=== PATIENT | male | born 1990 | race Caucasian/White ===

== ENCOUNTER 2017-08-04 08:20 | Emergency (ER) | payer SELFPAY ==
[2017-08-04] MEDS ORDERED: MOTRIN PO ONE (10:03)
--- NOTE | 2017-08-04 10:05 | Emergency Department Report ---
ED Lower Extremity HPI - General Chief Complaint: Extremity Injury, Lower Stated Complaint: GOUT Time Seen by Provider: 08/04/17 08:44 Source: patient Mode of arrival: Ambulatory Limitations: No Limitations - History of Present Illness Initial Comments: This is a 27-year-old male nontoxic, well nourished in appearance, no acute signs of distress presents to the ED complaining of right ankle pain and swelling x2 days. Patient stated he has chronic intermittent gout to the same extremity that occurs yearly for the past 4 years. Patient denies any new trauma to the region. Denies any joint redness or warmth to touch. Denies any numbness, tingling, fever, chills, nausea, vomiting, chest pain, shortness of breath, stiff neck or headache. Denies any allergies or past history besides gout. MD Complaint: ankle injury -: Gradual, days(s) (2) Injury: Ankle: Right Severity scale (0 -10): 8 Improves With: nothing Worsens With: nothing Associated Symptoms: swelling, able to partially bear weight, ambulatory. denies: snap/pop sensation, numbness, tingling, unable to bear weight - Related Data Previous Rx's Medication Instructions Recorded Last Taken Type Ciprofloxacin HCl [Ciprofloxacin 500 mg PO Q12H #20 tab 10/19/15 Unknown Rx TAB] HYDROcodone/APAP 5-325 [[place] 1 each PO Q6HR PRN #20 tablet 10/19/15 Unknown Rx 5/325] Prednisone [predniSONE 10 mg 10 mg PO .TAPER #1 tab.ds.pk 10/19/15 Unknown Rx (6-Day Pack, 21 Tabs)] Ibuprofen [Motrin 600 MG tab] 600 mg PO Q8H PRN #30 tablet 08/04/17 Unknown Rx predniSONE [Deltasone] 40 mg PO QDAY #5 tab 08/04/17 Unknown Rx Allergies Allergy/AdvReac Type Severity Reaction Status Date / Time No Known Allergies Allergy Verified 10/19/15 09:51 ED Review of Systems ROS: Stated complaint: GOUT Other details as noted in HPI Constitutional: denies: chills, fever Eyes: denies: eye pain, eye discharge, vision change ENT: denies: ear pain, throat pain Respiratory: denies: cough, shortness of breath, wheezing Cardiovascular: denies: chest pain, palpitations Endocrine: no symptoms reported Gastrointestinal: denies: abdominal pain, nausea, diarrhea Genitourinary: denies: urgency, dysuria Musculoskeletal: denies: back pain, joint swelling, arthralgia Skin: denies: rash, lesions Neurological: denies: headache, weakness, paresthesias Psychiatric: denies: anxiety, depression Hematological/Lymphatic: denies: easy bleeding, easy bruising ED Past Medical Hx - Past Medical History Additional medical history: gout - Surgical History Past Surgical History?: No - Social History Smoking Status: Never Smoker Substance Use Type: None - Medications Home Medications: Home Medications Medication Instructions Recorded Confirmed Last Taken Type Ciprofloxacin HCl [Ciprofloxacin 500 mg PO Q12H #20 tab 10/19/15 Unknown Rx TAB] HYDROcodone/APAP 5-325 [[place] 1 each PO Q6HR PRN #20 tablet 10/19/15 Unknown Rx 5/325] Prednisone [predniSONE 10 mg 10 mg PO .TAPER #1 tab.ds.pk 10/19/15 Unknown Rx (6-Day Pack, 21 Tabs)] Ibuprofen [Motrin 600 MG tab] 600 mg PO Q8H PRN #30 tablet 08/04/17 Unknown Rx predniSONE [Deltasone] 40 mg PO QDAY #5 tab 08/04/17 Unknown Rx ED Physical Exam - General Limitations: No Limitations General appearance: alert, in no apparent distress - Head Head exam: Present: atraumatic, normocephalic, normal inspection - Eye Eye exam: Present: normal appearance, PERRL, EOMI. Absent: scleral icterus, conjunctival injection, nystagmus, periorbital swelling, periorbital tenderness Pupils: Present: normal accommodation - ENT ENT exam: Present: normal exam, normal orophraynx, mucous membranes moist, TM's normal bilaterally, normal external ear exam - Neck Neck exam: Present: normal inspection, full ROM. Absent: tenderness, meningismus, lymphadenopathy, thyromegaly - Respiratory Respiratory exam: Present: normal lung sounds bilaterally. Absent: respiratory distress, wheezes, rales, rhonchi, stridor, chest wall tenderness, accessory muscle use, decreased breath sounds, prolonged expiratory - Cardiovascular Cardiovascular Exam: Present: regular rate, normal rhythm, normal heart sounds. Absent: bradycardia, tachycardia, irregular rhythm, systolic murmur, diastolic murmur, rubs, gallop - GI/Abdominal GI/Abdominal exam: Present: soft, normal bowel sounds. Absent: distended, tenderness, guarding, rebound, rigid, diminished bowel sounds - Rectal Rectal exam: Present: deferred - Extremities Exam Extremities exam: Present: normal inspection, full ROM, tenderness, normal capillary refill. Absent: pedal edema, joint swelling, calf tenderness - Expanded Lower Extremity Exam Right Hip exam: Present: normal inspection, full ROM Upper Leg exam: Present: normal inspection, full ROM Knee exam: Present: normal inspection, full ROM Lower Leg exam: Present: normal inspection, full ROM. Absent: Tricia's sign Ankle exam: Present: normal inspection, full ROM, tenderness, swelling. Absent : abrasion, laceration, ecchymosis, deformity, crepidus, dislocation, erythema, anterior draw sign Foot/Toe exam: Present: normal inspection, full ROM Neuro vascular tendon exam: Present: no vascular compromise. Absent: pulse deficit, abnormal cap refill, motor deficit, sensory deficit, tendon deficit, extremity cold to touch, pallor, abnormal 2-point discrimination, decreased fine /light touch, foot drop, peroneal nerve deficit, significant pain with passive ROM of distal joint Gait: Positive: observed and limited by pain 1 - Swelling and tenderness - Back Exam Back exam: Present: normal inspection, full ROM. Absent: tenderness, CVA tenderness (R), CVA tenderness (L), muscle spasm, paraspinal tenderness, vertebral tenderness, rash noted - Neurological Exam Neurological exam: Present: alert, oriented X3, CN II-XII intact, normal gait, reflexes normal - Psychiatric Psychiatric exam: Present: normal affect, normal mood - Skin Skin exam: Present: warm, dry, intact, normal color. Absent: rash ED Course Vital Signs 08/04/17 08:25 Temperature 98.2 F Pulse Rate 85 Respiratory 17 Rate Blood Pressure 170/108 O2 Sat by Pulse 99 Oximetry - Reevaluation(s) Reevaluation #1: 08/04/17 10:03 Patient is speaking in full sentences with no signs of distress noted. ED Lower Extremity MDM - Medical Decision Making 27-year-old male that presents with gout attack. Patient was examined by me and patient is stable. Patient received Solu-Medrol on 25 mg IM in the ED as well as ibuprofen 800 milligrams by mouth in the ED patient was educated on gout and has to avoid gout such as red meats. Patient received prednisone by mouth and ibuprofen at discharge. Patient was instructed to follow-up with a primary care doctor in 3-5 days or if symptoms worsen and continue return to emergency room as soon as possible possible. Patient is hemodynamically stable with stable vital signs. Patient states he is feeling better. At time time of discharge, the patient does not seem toxic or ill in appearance. No acute signs of distress noted. Patient agrees to discharge treatment plan of care. No further questions noted by the patient. Critical care attestation.: If time is entered above; I have spent that time in minutes in the direct care of this critically ill patient, excluding procedure time. 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 Prescriptions: Ibuprofen [Motrin 600 MG tab] 600 mg PO Q8H PRN #30 tablet PRN Reason: Pain predniSONE [Deltasone] 40 mg PO QDAY #5 tab Referrals: KRISTIN ARRINGTON MD [Primary Care Provider] - 3-5 Days ANGELINE HILLIARD MD [Staff Physician] - 3-5 Days [facility] [Outside] - 3-5 Days [facility] [Outside] - 3-5 Days Forms: Work/School Release Form(ED)
[2017-08-04 10:07] VITALS: BP 154/91
== END 2017-08-04 10:17 | disposition home or self-care (01) ==
LOC: ED 08:20
DX: M1A.0710 Idiopathic chronic gout, right ankle and foot, without tophus (tophi) (principal)
CPT/HCPCS: 96372; 99282; J2930

== ENCOUNTER 2018-03-23 06:23 | Emergency (ER) | payer SELFPAY ==
[2018-03-23] MEDS ORDERED: ASPIRIN PO ONE (06:57)
[2018-03-23 06:58] VITALS: BP 151/103
[2018-03-23 07:43] LABS: Basophils # (Auto) 0.1 K/mm3 (0.0-0.1); Basophils % (Auto) 0.4 % (0.0-1.8); Eosinophils # (Auto) 0.6 K/mm3 (0.0-0.4); Eosinophils % (Auto) 4.1 % (0.0-4.3); Hematocrit 47.4 % (35.5-45.6); Hemoglobin 16.4 gm/dl (11.8-15.2); Lymphocytes # (Auto) 3.1 K/mm3 (1.2-5.4); Lymphocytes % (Auto) 21.6 % (13.4-35.0); Mean Corpuscular HGB Conc 35 % (32-34); Mean Corpuscular Hemoglobin 31 pg (28-32); Mean Corpuscular Volume 91 fl (84-94); Monocytes # (Auto) 0.7 K/mm3 (0.0-0.8); Monocytes % (Auto) 5.1 % (0.0-7.3); Platelet Count 277 K/mm3 (140-440); Red Blood Count 5.23 M/mm3 (3.65-5.03)
[2018-03-23 08:00] LABS: BUN/Creatinine Ratio 11; Blood Urea Nitrogen 10 mg/dL (9-20); Calcium 8.8 mg/dL (8.4-10.2); Hemolysis Index 18
--- NOTE | 2018-03-23 08:04 | Emergency Department Report ---
ED Chest Pain HPI - General Chief Complaint: Chest Pain Stated Complaint: CHEST PAIN Time Seen by Provider: 03/23/18 07:53 Source: patient Mode of arrival: Ambulatory Limitations: No Limitations - History of Present Illness Initial Comments: 27-year-old male presents to the emergency department with complaint of waking up this morning with some generalized chest tightness and/or discomfort. He denies any shortness of breath, nausea, vomiting, back pain, diaphoresis, abdominal pain. He did not take anything for his symptoms prior to presentation. The symptoms have resolved since, without any intervention. He used to be a consistent marijuana smoker but quit back and says that he started smoking cigarettes about one month ago. No family history of early cardiac events or disease. No recent travel, recent surgery, recent immobility, or any sick contacts at home. - Related Data Previous Rx's Medication Instructions Recorded Last Taken Type Ciprofloxacin HCl [Ciprofloxacin 500 mg PO Q12H #20 tab 10/19/15 Unknown Rx TAB] HYDROcodone/APAP 5-325 [[place] 1 each PO Q6HR PRN #20 tablet 10/19/15 Unknown Rx 5/325] Prednisone [predniSONE 10 mg 10 mg PO .TAPER #1 tab.ds.pk 10/19/15 Unknown Rx (6-Day Pack, 21 Tabs)] Ibuprofen [Motrin 600 MG tab] 600 mg PO Q8H PRN #30 tablet 08/04/17 Unknown Rx predniSONE [Deltasone] 40 mg PO QDAY #5 tab 08/04/17 Unknown Rx Allergies Allergy/AdvReac Type Severity Reaction Status Date / Time No Known Allergies Allergy Verified 10/19/15 09:51 Heart Score - HEART Score History: Slightly suspicious EKG: Normal Age: < 45 Risk factors: 1-2 risk factors Troponin: < normal limit HEART Score: 1 - Critical Actions Critical Actions: 0-3 pts:0.9-1.7%risk of adverse cardiac event.Candidate for discharge ED Review of Systems ROS: Stated complaint: CHEST PAIN Other details as noted in HPI Comment: All other systems reviewed and negative Constitutional: denies: chills, fever Eyes: denies: eye pain, eye discharge, vision change ENT: denies: ear pain, throat pain Respiratory: denies: cough, shortness of breath, wheezing Cardiovascular: chest pain. denies: palpitations Gastrointestinal: denies: abdominal pain, nausea, diarrhea Genitourinary: denies: urgency, dysuria Musculoskeletal: denies: back pain, joint swelling, arthralgia Skin: denies: rash, lesions Neurological: denies: headache, weakness, paresthesias ED Past Medical Hx - Past Medical History Previous Medical History?: Yes Hx Arthritis: Yes (gout) Additional medical history: gout - Surgical History Past Surgical History?: No - Social History Smoking Status: Former Smoker Substance Use Type: None - Medications Home Medications: Home Medications Medication Instructions Recorded Confirmed Last Taken Type Ciprofloxacin HCl [Ciprofloxacin 500 mg PO Q12H #20 tab 10/19/15 Unknown Rx TAB] HYDROcodone/APAP 5-325 [[place] 1 each PO Q6HR PRN #20 tablet 10/19/15 Unknown Rx 5/325] Prednisone [predniSONE 10 mg 10 mg PO .TAPER #1 tab.ds.pk 10/19/15 Unknown Rx (6-Day Pack, 21 Tabs)] Ibuprofen [Motrin 600 MG tab] 600 mg PO Q8H PRN #30 tablet 08/04/17 Unknown Rx predniSONE [Deltasone] 40 mg PO QDAY #5 tab 08/04/17 Unknown Rx ED Physical Exam - General Limitations: No Limitations - Other Other exam information: GENERAL: The patient is well-developed well-nourished. HENT: Normocephalic. Atraumatic. Patient has moist mucous membranes. EYES: Extraocular motions are intact. Pupils equal reactive to light bilaterally. NECK: Supple. Trachea is midline. CHEST/LUNGS: Clear to auscultation. There is no respiratory distress noted. HEART/CARDIOVASCULAR: Regular. There is no tachycardia. There is no murmur. ABDOMEN: Abdomen is soft, nontender. Patient has normal bowel sounds. There is no abdominal distention. SKIN: Skin is warm and dry. NEURO: The patient is awake, alert, and oriented. The patient is cooperative. The patient has no focal neurologic deficits. The patient has normal speech. MUSCULOSKELETAL: There is no tenderness or deformity. There is no limitation range of motion. There is no evidence of acute injury. ED Course Vital Signs 03/23/18 06:53 Temperature 98.5 F Pulse Rate 79 Respiratory 18 Rate Blood Pressure 151/103 O2 Sat by Pulse 96 Oximetry KRISTIN score - Kristin Score Age > 65: (0) No Aspirin use within the Past 7 Days: (0) No 3 or more CAD Risk Factors: (0) No 2 or more Angina events in past 24 hrs: (0) No Known CAD with more than 50% Stenosis: (0) No Elevated Cardiac Markers: (0) No ST Deviation Greater than 0.5mm: (0) No KRISTIN Score: 0 ED Medical Decision Making - Lab Data Result diagrams: 03/23/18 07:11 03/23/18 07:09 - EKG Data -: EKG Interpreted by Me EKG shows normal: sinus rhythm, axis, intervals, QRS complexes, ST-T waves ( early repolarization) Rate: normal - EKG Data When compared to previous EKG there are: previous EKG unavailable Interpretation: normal EKG - Radiology Data Radiology results: image reviewed interpreted by me: Chest x-ray does not show any acute process. There are no pleural effusions, obvious pneumonia and there is no pneumothorax. - Medical Decision Making Patient woke up this morning with some generalized chest tightness and/or discomfort. It seems to have resolved by the time I am seeing him in the emergency department. EKG does not show any signs of ST elevation MN, ischemia or dysrhythmia. Chest x-ray does not show any acute process. Labs were unremarkable including negative troponins 2 and a negative d-dimer. He is low on the Frye score criteria and has a KRISTIN score of 0. He was reevaluated multiple times over multiple hours and the chest pain did not return. We discussed smoking cessation. He will follow up with a primary care physician and will return to the ER with any return of his chest pain, worsening of his symptoms or any acute distress. - Differential Diagnosis MN, costochondritis, PE, pneumonia Critical Care Time: No Critical care attestation.: If time is entered above; I have spent that time in minutes in the direct care of this critically ill patient, excluding procedure time. ED Disposition Clinical Impression: Tobacco use disorder, Elevated blood pressure reading Chest pain Qualifiers: Chest pain type: unspecified Qualified Code(s): R07.9 - Chest pain, unspecified Disposition: DC-01 TO HOME OR SELFCARE Is pt being admited?: No Condition: Stable Instructions: Chest Pain (ED), How to Stop Smoking (ED) Additional Instructions: Please follow up with a primary care physician in the next few days. Return to the emergency department with any recurrence of your chest pain, or with any acute distress. Please quit smoking. Try and stay away from foods are high in salt and caffeinated products to help with her blood pressure. Keep a blood pressure log. Referrals: PRIMARY CARE, [Primary Care Provider] - 3-5 Days DIPAK YEAGER MD [Staff Physician] - 3-5 Days [facility] [Outside] - 3-5 Days Forms: Work/School Release Form(ED) Time of Disposition: 09:52
--- NOTE | 2018-03-23 09:46 | XRay Report ---
ROUTINE CHEST, TWO VIEWS: HISTORY: chest pain. The trachea, heart, mediastinal contour, lung marquez and bony thorax are unremarkable. IMPRESSION: Unremarkable chest x-ray. No significant change since 10/19/15.
== END 2018-03-23 09:59 | disposition home or self-care (01) ==
LOC: ED 06:23
DX: R07.89 Other chest pain (principal); I10 Essential (primary) hypertension; Z72.0 Tobacco use; M10.9 Gout, unspecified
CPT/HCPCS: 36415; 71046; 80048; 84484; 85025; 93005; 93010

== ENCOUNTER 2018-06-15 12:33 | Emergency (ER) | payer SELFPAY ==
[2018-06-15] MEDS ORDERED: MOTRIN PO ONE (14:50)
[2018-06-15] MEDS ORDERED: BOOSTRIX IM ONE (14:50)
--- NOTE | 2018-06-15 14:54 | Emergency Department Report ---
- General Chief complaint: Skin/Abscess/Foreign Body Stated complaint: SPIDER BITE ON (L) BUTTOCKS Time Seen by Provider: 06/15/18 14:05 Source: patient Mode of arrival: Ambulatory Limitations: No Limitations - History of Present Illness Initial comments: This is a 28-year-old male nontoxic, well nourished in appearance, no acute signs of distress presents to the ED with c/o of redness with pain in left buttock area. Patient stated he is not sure how he developed this. Patient denies any pus or drainage. Patient denies any nausea, vomiting chest pain, shortness of breathe, fever, chills, headache, stiff neck, back pain. Patient denies any allergies or PMH. MD complaint: insect bite/sting -: days(s) (2) Tetanus Up to Date: no Location: buttocks Severity: mild Severity scale (0 -10): 8 Quality: aching Consistency: constant Improves with: none Worsens with: none Associated symptoms: denies other symptoms Treatments Prior to Arrival: none - Related Data Previous Rx's Medication Instructions Recorded Last Taken Type Ciprofloxacin HCl [Ciprofloxacin 500 mg PO Q12H #20 tab 10/19/15 Unknown Rx TAB] HYDROcodone/APAP 5-325 [[place] 1 each PO Q6HR PRN #20 tablet 10/19/15 Unknown Rx 5/325] Prednisone [predniSONE 10 mg 10 mg PO .TAPER #1 tab.ds.pk 10/19/15 Unknown Rx (6-Day Pack, 21 Tabs)] Ibuprofen [Motrin 600 MG tab] 600 mg PO Q8H PRN #30 tablet 08/04/17 Unknown Rx predniSONE [Deltasone] 40 mg PO QDAY #5 tab 08/04/17 Unknown Rx Acetaminophen/Codeine [Tylenol 1 tab PO Q6H PRN #12 tab 06/15/18 Unknown Rx /Codeine # 3 tab] Clindamycin [Clindamycin CAP] 300 mg PO Q8H #21 cap 06/15/18 Unknown Rx Ibuprofen [Motrin] 600 mg PO Q8H PRN #30 tablet 06/15/18 Unknown Rx Allergies Allergy/AdvReac Type Severity Reaction Status Date / Time No Known Allergies Allergy Verified 10/19/15 09:51 Abscess Boil HPI - HPI Chief Complaint: Skin/Abscess/Foreign Body Stated Complaint: SPIDER BITE ON (L) BUTTOCKS Time Seen by Provider: 06/15/18 14:05 Home Medications: Previous Rx's Medication Instructions Recorded Last Taken Type Ciprofloxacin HCl [Ciprofloxacin 500 mg PO Q12H #20 tab 10/19/15 Unknown Rx TAB] HYDROcodone/APAP 5-325 [[place] 1 each PO Q6HR PRN #20 tablet 10/19/15 Unknown Rx 5/325] Prednisone [predniSONE 10 mg 10 mg PO .TAPER #1 tab.ds.pk 10/19/15 Unknown Rx (6-Day Pack, 21 Tabs)] Ibuprofen [Motrin 600 MG tab] 600 mg PO Q8H PRN #30 tablet 08/04/17 Unknown Rx predniSONE [Deltasone] 40 mg PO QDAY #5 tab 08/04/17 Unknown Rx Acetaminophen/Codeine [Tylenol 1 tab PO Q6H PRN #12 tab 06/15/18 Unknown Rx /Codeine # 3 tab] Clindamycin [Clindamycin CAP] 300 mg PO Q8H #21 cap 06/15/18 Unknown Rx Ibuprofen [Motrin] 600 mg PO Q8H PRN #30 tablet 06/15/18 Unknown Rx Allergies/Adverse Reactions: Allergies Allergy/AdvReac Type Severity Reaction Status Date / Time No Known Allergies Allergy Verified 10/19/15 09:51 ED Review of Systems ROS: Stated complaint: SPIDER BITE ON (L) BUTTOCKS Other details as noted in HPI Constitutional: denies: chills, fever Eyes: denies: eye pain, eye discharge, vision change ENT: denies: ear pain, throat pain Respiratory: denies: cough, shortness of breath, wheezing Cardiovascular: denies: chest pain, palpitations Endocrine: no symptoms reported Gastrointestinal: denies: abdominal pain, nausea, diarrhea Genitourinary: denies: urgency, dysuria Musculoskeletal: denies: back pain, joint swelling, arthralgia Skin: denies: rash, lesions Neurological: denies: headache, weakness, paresthesias Psychiatric: denies: anxiety, depression Hematological/Lymphatic: denies: easy bleeding, easy bruising ED Past Medical Hx - Past Medical History Previous Medical History?: Yes Hx Arthritis: Yes (gout) Additional medical history: gout - Surgical History Past Surgical History?: No - Social History Smoking Status: Never Smoker Substance Use Type: None - Medications Home Medications: Home Medications Medication Instructions Recorded Confirmed Last Taken Type Ciprofloxacin HCl [Ciprofloxacin 500 mg PO Q12H #20 tab 10/19/15 Unknown Rx TAB] HYDROcodone/APAP 5-325 [[place] 1 each PO Q6HR PRN #20 tablet 10/19/15 Unknown Rx 5/325] Prednisone [predniSONE 10 mg 10 mg PO .TAPER #1 tab.ds.pk 10/19/15 Unknown Rx (6-Day Pack, 21 Tabs)] Ibuprofen [Motrin 600 MG tab] 600 mg PO Q8H PRN #30 tablet 08/04/17 Unknown Rx predniSONE [Deltasone] 40 mg PO QDAY #5 tab 08/04/17 Unknown Rx Acetaminophen/Codeine [Tylenol 1 tab PO Q6H PRN #12 tab 06/15/18 Unknown Rx /Codeine # 3 tab] Clindamycin [Clindamycin CAP] 300 mg PO Q8H #21 cap 06/15/18 Unknown Rx Ibuprofen [Motrin] 600 mg PO Q8H PRN #30 tablet 06/15/18 Unknown Rx ED Physical Exam - General Limitations: No Limitations General appearance: alert, in no apparent distress - Head Head exam: Present: atraumatic, normocephalic - Eye Eye exam: Present: normal appearance - ENT ENT exam: Present: mucous membranes moist - Neck Neck exam: Present: normal inspection - Respiratory Respiratory exam: Present: normal lung sounds bilaterally. Absent: respiratory distress - Cardiovascular Cardiovascular Exam: Present: regular rate, normal rhythm. Absent: systolic murmur, diastolic murmur, rubs, gallop - GI/Abdominal GI/Abdominal exam: Present: soft, normal bowel sounds - Rectal Rectal exam: Present: deferred - Extremities Exam Extremities exam: Present: normal inspection, full ROM, normal capillary refill - Back Exam Back exam: Present: normal inspection, full ROM - Neurological Exam Neurological exam: Present: alert, oriented X3, normal gait - Psychiatric Psychiatric exam: Present: normal affect, normal mood - Skin Skin exam: Present: warm, dry, intact, normal color. Absent: rash - Other Other exam information: 2 cm x 2 cm circular redness with no induration or flutance to left buttock area. Tender to touch. Slight warm to touch. No pus or drainage. ED Course Vital Signs 06/15/18 12:55 Temperature 99.0 F Pulse Rate 95 H Respiratory 18 Rate Blood Pressure 153/85 O2 Sat by Pulse 97 Oximetry - Reevaluation(s) Reevaluation #1: 06/15/18 14:55 Patient is speaking in full sentences with no signs of distress noted. ED Medical Decision Making - Medical Decision Making This is a 28-year-old male that presents with cellulitis. Patient is stable and was examined by me. Upon examination there is no abscess formation. Patient received tetanus booster in the ER. I use a permanent marker to outline the cellulitis and patient was instructed to return to the ER if increased swelling or redness at this may be an abscess formation that needs to be further evaluated and treated. I will discharge patient with clindamycin. Patient was referred to Follow-up with a primary care doctor in 3-5 days or if symptoms worsen and continue return to emergency room as soon as possible. At time of discharge, the patient does not seem toxic or ill in appearance. No acute signs of distress noted. Patient agrees to discharge treatment plan of care. No further questions noted by the patient. Critical care attestation.: If time is entered above; I have spent that time in minutes in the direct care of this critically ill patient, excluding procedure time. ED Disposition Clinical Impression: Cellulitis Qualifiers: Site of cellulitis: buttock Qualified Code(s): L03.317 - Cellulitis of buttock Disposition: DC-01 TO HOME OR SELFCARE Is pt being admited?: No Does the pt Need Aspirin: No Condition: Stable Instructions: Cellulitis (ED) Additional Instructions: Follow-up with a primary care doctor in 3-5 days or if symptoms worsen and continue return to emergency room as soon as possible. Do not operate any machinery while taking Tylenol with codeine as this may cause drowsiness. Prescriptions: Acetaminophen/Codeine [Tylenol /Codeine # 3 tab] 1 tab PO Q6H PRN #12 tab PRN Reason: Pain , Severe (7-10) Clindamycin [Clindamycin CAP] 300 mg PO Q8H #21 cap Ibuprofen [Motrin] 600 mg PO Q8H PRN #30 tablet PRN Reason: Pain Referrals: PRIMARY CAREMD [Primary Care Provider] - 3-5 Days ELVA TERAN MD [Staff Physician] - 3-[address] [facility] [Outside] - 3-5 Days [facility] [Outside] - 3-5 Days Forms: Work/School Release Form(ED)
[2018-06-15 15:09] VITALS: BP 150/80
== END 2018-06-15 15:08 | disposition home or self-care (01) ==
LOC: ED 12:33
DX: L03.317 Cellulitis of buttock (principal); M19.90 Unspecified osteoarthritis, unspecified site; M10.9 Gout, unspecified; Z79.899 Other long term (current) drug therapy
CPT/HCPCS: 90471; 90715; 99282

== ENCOUNTER 2019-04-01 17:19 | Emergency (ER) | payer SELFPAY ==
--- NOTE | 2019-04-01 17:46 | Emergency Department Report ---
Blank Doc - Documentation Documentation: This is a 28-year-old male that presents with right foot swelling. Patient de nies any injuries. Stated has HX of gout. This initial assessment/diagnostic orders/clinical plan/treatment(s) is/are subject to change based on patient's health status, clinical progression and re- assessment by fellow clinical providers in the ED. Further treatment and workup at subsequent clinical providers discretion. Patient/guardians urged not to elope from the ED as their condition may be serious if not clinically assessed and managed. Initial orders include: 1- Patient sent to [facility] for further evaluation and treatment
[2019-04-01 17:47] VITALS: BP 176/11
[2019-04-01] MEDS ORDERED: SOLU-Medrol IM ONE (20:10)
[2019-04-01] MEDS ORDERED: TORADOL IM ONE (20:10)
[2019-04-01] MEDS ORDERED: PERCOCET 5/325 PO ONE (20:10)
[2019-04-01] MEDS ORDERED: COLCHICINE PO ONE (20:11)
[2019-04-01] MEDS ORDERED: ZOFRAN ODT PO ONE (20:11)
--- NOTE | 2019-04-01 21:18 | Emergency Department Report ---
ED General Adult HPI - General Chief complaint: Extremity Injury, Lower Stated complaint: R FOOT PAIN Time Seen by Provider: 04/01/19 17:45 Source: patient Mode of arrival: Wheelchair Limitations: No Limitations - History of Present Illness Initial comments: Patient is a 28-year-old male with a history of chronic gouty arthropathy who presents to the ED with complaint of acute exacerbation of his gouty arthropathy characterized by severe right ankle pain, erythema and swelling for the last 5 days. Patient admits to eating a lot of red meat at home. Patient denies traumatic injury, fall, numbness and tingling of the right ankle or right foot, his lifting, nausea, vomiting, fever, chills, dizziness or back pain. MD Complaint: right ankle joint pain; Gouty arthropathy flare -: Sudden, days(s) (5) Location: lower extremity (right ankle) Radiation: non-radiation Severity scale (0 -10): 6 Quality: burning, aching, sharp, constant Consistency: constant Improves with: none Worsens with: none Associated Symptoms: denies: confusion, chest pain, cough, diaphoresis, fever/chills, loss of appetite, malaise, nausea/vomiting, seizure, shortness of breath, syncope, weakness Treatments Prior to Arrival: NSAID - Related Data Previous Rx's Medication Instructions Recorded Last Taken Type Ciprofloxacin HCl [Ciprofloxacin 500 mg PO Q12H #20 tab 10/19/15 Unknown Rx TAB] HYDROcodone/APAP 5-325 [[place] 1 each PO Q6HR PRN #20 tablet 10/19/15 Unknown Rx 5/325] Prednisone [predniSONE 10 mg 10 mg PO .TAPER #1 tab.ds.pk 10/19/15 Unknown Rx (6-Day Pack, 21 Tabs)] Ibuprofen [Motrin 600 MG tab] 600 mg PO Q8H PRN #30 tablet 08/04/17 Unknown Rx predniSONE [Deltasone] 40 mg PO QDAY #5 tab 08/04/17 Unknown Rx Acetaminophen/Codeine [Tylenol 1 tab PO Q6H PRN #12 tab 06/15/18 Unknown Rx /Codeine # 3 tab] Clindamycin [Clindamycin CAP] 300 mg PO Q8H #21 cap 06/15/18 Unknown Rx Ibuprofen [Motrin] 600 mg PO Q8H PRN #30 tablet 06/15/18 Unknown Rx Colchicine 0.6 mg PO Q8H PRN #30 capsule 04/01/19 Unknown Rx Indomethacin 50 mg PO Q8H PRN #45 capsule 04/01/19 Unknown Rx predniSONE [Deltasone] 60 mg PO QDAY #15 tab 04/01/19 Unknown Rx traMADol [Ultram] 50 mg PO Q6HR PRN #12 tablet 04/01/19 Unknown Rx Allergies Allergy/AdvReac Type Severity Reaction Status Date / Time No Known Allergies Allergy Verified 04/01/19 17:24 ED Review of Systems ROS: Stated complaint: R FOOT PAIN Other details as noted in HPI Constitutional: denies: chills, fever Eyes: denies: eye pain, eye discharge, vision change ENT: denies: ear pain, throat pain Respiratory: denies: cough, shortness of breath, wheezing Cardiovascular: denies: chest pain, palpitations Endocrine: no symptoms reported Gastrointestinal: denies: abdominal pain, nausea, diarrhea Genitourinary: denies: urgency, dysuria Musculoskeletal: joint swelling (right ankle), arthralgia (right ankle), myalgia. denies: back pain Skin: denies: rash, lesions Neurological: denies: headache, weakness, paresthesias Psychiatric: denies: anxiety, depression Hematological/Lymphatic: denies: easy bleeding, easy bruising ED Past Medical Hx - Past Medical History Previous Medical History?: Yes Hx Arthritis: Yes (gout) Additional medical history: gout - Surgical History Past Surgical History?: No - Social History Smoking Status: Never Smoker Substance Use Type: None - Medications Home Medications: Home Medications Medication Instructions Recorded Confirmed Last Taken Type Ciprofloxacin HCl [Ciprofloxacin 500 mg PO Q12H #20 tab 10/19/15 Unknown Rx TAB] HYDROcodone/APAP 5-325 [[place] 1 each PO Q6HR PRN #20 tablet 10/19/15 Unknown Rx 5/325] Prednisone [predniSONE 10 mg 10 mg PO .TAPER #1 tab.ds.pk 10/19/15 Unknown Rx (6-Day Pack, 21 Tabs)] Ibuprofen [Motrin 600 MG tab] 600 mg PO Q8H PRN #30 tablet 08/04/17 Unknown Rx predniSONE [Deltasone] 40 mg PO QDAY #5 tab 08/04/17 Unknown Rx Acetaminophen/Codeine [Tylenol 1 tab PO Q6H PRN #12 tab 06/15/18 Unknown Rx /Codeine # 3 tab] Clindamycin [Clindamycin CAP] 300 mg PO Q8H #21 cap 06/15/18 Unknown Rx Ibuprofen [Motrin] 600 mg PO Q8H PRN #30 tablet 06/15/18 Unknown Rx Colchicine 0.6 mg PO Q8H PRN #30 capsule 04/01/19 Unknown Rx Indomethacin 50 mg PO Q8H PRN #45 capsule 04/01/19 Unknown Rx predniSONE [Deltasone] 60 mg PO QDAY #15 tab 04/01/19 Unknown Rx traMADol [Ultram] 50 mg PO Q6HR PRN #12 tablet 04/01/19 Unknown Rx ED Physical Exam - General Limitations: No Limitations General appearance: alert, in no apparent distress - Head Head exam: Present: atraumatic, normocephalic, normal inspection - Eye Eye exam: Present: normal appearance, PERRL, EOMI. Absent: scleral icterus, conjunctival injection, nystagmus, periorbital swelling, periorbital tenderness - ENT ENT exam: Present: normal exam, normal orophraynx, mucous membranes moist, TM's normal bilaterally, normal external ear exam - Neck Neck exam: Present: normal inspection, full ROM. Absent: tenderness, meningismus, lymphadenopathy, thyromegaly - Respiratory Respiratory exam: Present: normal lung sounds bilaterally. Absent: respiratory distress, wheezes, rales, rhonchi, chest wall tenderness, accessory muscle use, decreased breath sounds, prolonged expiratory - Cardiovascular Cardiovascular Exam: Present: regular rate, normal rhythm, normal heart sounds. Absent: systolic murmur, diastolic murmur, rubs, gallop - GI/Abdominal GI/Abdominal exam: Present: soft, normal bowel sounds. Absent: tenderness, guarding, rigid, hyperactive bowel sounds, hypoactive bowel sounds, organomegaly - Rectal Rectal exam: Present: deferred - Extremities Exam Extremities exam: Present: normal inspection, full ROM, tenderness (right ankle), normal capillary refill, joint swelling (right ankle) - Back Exam Back exam: Present: normal inspection, full ROM. Absent: tenderness, CVA tenderness (L), muscle spasm, paraspinal tenderness, vertebral tenderness - Neurological Exam Neurological exam: Present: alert, oriented X3, CN II-XII intact, normal gait, reflexes normal - Psychiatric Psychiatric exam: Present: normal affect, normal mood - Skin Skin exam: Present: warm, dry, intact, normal color. Absent: rash ED Course Vital Signs 04/01/19 17:46 Temperature 98.4 F Pulse Rate 85 Respiratory 16 Rate Blood Pressure 176/11 O2 Sat by Pulse 95 Oximetry - Reevaluation(s) Reevaluation #1: 04/01/19 21:16 Patient is alert and oriented 3 and is not in any distress. The patient was tr eated for pain in the ED and discharged home on pain medications based on his complaint of a flare of his chronic gouty arthropathy. Patient discharged home and advised to follow up with his primary care physician in 5-7 days for reevaluation or return to the ED immediately if symptoms get worse. Patient blood pressure was rechecked and it was stable prior to discharge. 04/01/19 21:17 ED Medical Decision Making - Medical Decision Making Patient is alert and oriented 3 and is not in any distress. The patient was treated for pain in the ED and discharged home on pain medications based on his complaint of a flare of his chronic gouty arthropathy. Patient discharged home and advised to follow up with his primary care physician in 5-7 days for reevaluation or return to the ED immediately if symptoms get worse. Patient blood pressure was rechecked and it was stable prior to discharge. - Differential Diagnosis Chronic Gouty Arthropathy; Right ankle sprain, chronic osteoarthritis Critical care attestation.: If time is entered above; I have spent that time in minutes in the direct care of this critically ill patient, excluding procedure time. ED Disposition Clinical Impression: Chronic gouty arthropathy Degenerative joint disease of right ankle Qualifiers: Osteoarthritis type: primary Qualified Code(s): M19.071 - Primary osteoarthritis, right ankle and foot Disposition: DC-01 TO HOME OR SELFCARE Is pt being admited?: No Does the pt Need Aspirin: No Condition: Stable Instructions: Osteoarthritis (ED), Acute Gouty Arthritis (ED) Additional Instructions: Take medication with food, drink plenty of fluids and follow up with your primary care physician in 5-7 days for reevaluation. Return to the ED immediately if symptoms get worse. Prescriptions: Colchicine 0.6 mg PO Q8H PRN #30 capsule PRN Reason: Pain , Severe (7-10) predniSONE [Deltasone] 60 mg PO QDAY #15 tab Indomethacin 50 mg PO Q8H PRN #45 capsule PRN Reason: Pain , Severe (7-10) traMADol [Ultram] 50 mg PO Q6HR PRN #12 tablet PRN Reason: Pain Referrals: [facility] [Outside] - 3-5 Days Time of Disposition: 21:23 Print Language: MOHAWK
== END 2019-04-01 21:30 | disposition home or self-care (01) ==
LOC: ED 17:19
DX: M19.071 Primary osteoarthritis, right ankle and foot (principal); M19.90 Unspecified osteoarthritis, unspecified site; Z79.899 Other long term (current) drug therapy
CPT/HCPCS: 96372; 99282; J1885; J2930; Q0162

== ENCOUNTER 2020-12-26 09:02 | Emergency (ER) | payer SELFPAY ==
[2020-12-26 09:18] VITALS: BP 151/104
--- NOTE | 2020-12-26 09:31 | Emergency Department Report ---
ED Extremity Problem HPI - General Chief complaint: Extremity Injury, Lower Stated complaint: GOUT LT FOOT Time Seen by Provider: 12/26/20 09:30 Source: patient Mode of arrival: Wheelchair Limitations: No Limitations - History of Present Illness Initial comments: 30-year-old male with a past history of gout presents to the ER today complaint of a flareup of his gout to his left foot. Patient states that he has similar symptoms in the past. He is not on any daily preventative medications for gout. He states that he does have a "specialist" appointment on Friday for his gout. He states that the pain flared up about 2 days ago. Reports mild swelling. Pain is worse on palpation and movement. he reports no other symptoms at this time. MD Complaint: joint swelling, joint paint -: Gradual (2) - Related Data Previous Rx's Medication Instructions Recorded Last Taken Type Acetaminophen/Codeine [Tylenol 1 tab PO Q6H PRN #12 tab 12/26/20 Unknown Rx /Codeine # 3 tab] predniSONE [Deltasone] 60 mg PO QDAY #15 tab 12/26/20 Unknown Rx Allergies Allergy/AdvReac Type Severity Reaction Status Date / Time No Known Allergies Allergy Verified 04/01/19 17:24 ED Review of Systems ROS: Stated complaint: GOUT LT FOOT Other details as noted in HPI Comment: All other systems reviewed and negative Musculoskeletal: joint swelling, arthralgia ED Past Medical Hx - Past Medical History Previous Medical History?: Yes Hx Arthritis: Yes (gout) Additional medical history: gout - Surgical History Past Surgical History?: No - Social History Smoking Status: Never Smoker Substance Use Type: None - Medications Home Medications: Home Medications Medication Instructions Recorded Confirmed Last Taken Type Acetaminophen/Codeine [Tylenol 1 tab PO Q6H PRN #12 tab 12/26/20 Unknown Rx /Codeine # 3 tab] predniSONE [Deltasone] 60 mg PO QDAY #15 tab 12/26/20 Unknown Rx ED Physical Exam - General Limitations: No Limitations General appearance: alert, in no apparent distress, obese - Head Head exam: Present: atraumatic, normocephalic, normal inspection - Respiratory Respiratory exam: Absent: respiratory distress - Cardiovascular Cardiovascular Exam: Present: regular rate - Extremities Exam Extremities exam: Present: full ROM, other (There is mild tenderness to palpation at the base of the left fifth metatarsal bone with some mild swelling and subtle erythema.) - Neurological Exam Neurological exam: Present: alert, oriented X3, CN II-XII intact - Psychiatric Psychiatric exam: Present: normal affect, normal mood - Skin Skin exam: Present: intact ED Course Vital Signs 12/26/20 09:15 Temperature 98.6 F Pulse Rate 81 Respiratory 18 Rate Blood Pressure 151/104 O2 Sat by Pulse 99 Oximetry Critical care attestation.: If time is entered above; I have spent that time in minutes in the direct care of this critically ill patient, excluding procedure time. ED Disposition Clinical Impression: Gout of left foot Disposition: DC- TO HOME OR SELFCARE Is pt being admited?: No Does the pt Need Aspirin: No Condition: Stable Additional Instructions: Take prednisone the pain medication as prescribed. Keep your appointment with the specialist on Friday. Return to the ER if your symptoms changes or worsens in any way. Prescriptions: predniSONE [Deltasone] 60 mg PO QDAY #15 tab Acetaminophen/Codeine [Tylenol /Codeine # 3 tab] 1 tab PO Q6H PRN #12 tab PRN Reason: Pain , Severe (7-10) Referrals: PRIMARY CARE, [Referring] - 3-5 Days Time of Disposition: 09:39
== END 2020-12-26 10:43 | disposition home or self-care (01) ==
LOC: ED 09:02
DX: M10.9 Gout, unspecified (principal); Z79.899 Other long term (current) drug therapy
CPT/HCPCS: 99282

== ENCOUNTER 2021-10-18 13:18 | Emergency (ER) | payer SELFPAY ==
[2021-10-18 13:29] VITALS: BP 150/104
[2021-10-18] MEDS ORDERED: oxyCODONE /ACETAMINOPHEN 5-325MG TAB PO PRN (15:01)
--- NOTE | 2021-10-18 15:02 | Emergency Department Report ---
ED Extremity Problem HPI - General Chief complaint: Extremity Problem,Nontraumatic Stated complaint: gout on right foot Time Seen by Provider: 10/18/21 14:48 Source: patient Mode of arrival: Ambulatory Limitations: No Limitations - Related Data Previous Rx's Medication Instructions Recorded Last Taken Type Acetaminophen/Codeine [Tylenol 1 tab PO Q6H PRN #12 tab 12/26/20 Unknown Rx /Codeine # 3 tab] Colchicine [Colcrys] 0.6 mg PO BID 3 Days #6 tab 10/18/21 Unknown Rx Indomethacin 50 mg PO Q8H #15 capsule 10/18/21 Unknown Rx predniSONE [Deltasone] 60 mg PO QDAY #15 tab 10/18/21 Unknown Rx traMADoL [Ultram 50 MG tab] 50 mg PO Q4HR PRN #15 tablet 10/18/21 Unknown Rx Allergies Allergy/AdvReac Type Severity Reaction Status Date / Time No Known Allergies Allergy Verified 04/01/19 17:24 ED Review of Systems ROS: Stated complaint: gout on right foot Other details as noted in HPI Comment: All other systems reviewed and negative ED Past Medical Hx - Past Medical History Previous Medical History?: Yes Hx Arthritis: Yes (gout) Additional medical history: gout - Surgical History Past Surgical History?: No - Social History Smoking Status: Never Smoker Substance Use Type: None - Medications Home Medications: Home Medications Medication Instructions Recorded Confirmed Last Taken Type Acetaminophen/Codeine [Tylenol 1 tab PO Q6H PRN #12 tab 12/26/20 Unknown Rx /Codeine # 3 tab] Colchicine [Colcrys] 0.6 mg PO BID 3 Days #6 tab 10/18/21 Unknown Rx Indomethacin 50 mg PO Q8H #15 capsule 10/18/21 Unknown Rx predniSONE [Deltasone] 60 mg PO QDAY #15 tab 10/18/21 Unknown Rx traMADoL [Ultram 50 MG tab] 50 mg PO Q4HR PRN #15 tablet 10/18/21 Unknown Rx ED Physical Exam - General Limitations: No Limitations General appearance: alert, in no apparent distress - Head Head exam: Present: atraumatic, normocephalic - Eye Eye exam: Present: normal appearance - ENT ENT exam: Present: mucous membranes moist - Neck Neck exam: Present: normal inspection - Respiratory Respiratory exam: Present: normal lung sounds bilaterally. Absent: respiratory distress - Cardiovascular Cardiovascular Exam: Present: regular rate, normal rhythm. Absent: systolic murmur, diastolic murmur, rubs, gallop - GI/Abdominal GI/Abdominal exam: Present: soft, normal bowel sounds - Rectal Rectal exam: Present: deferred - Extremities Exam Extremities exam: Present: normal inspection - Expanded Lower Extremity Exam Right Hip exam: Present: normal inspection Upper Leg exam: Present: normal inspection Knee exam: Present: normal inspection Lower Leg exam: Present: normal inspection Ankle exam: Present: normal inspection Foot/Toe exam: Present: full ROM, tenderness, swelling, erythema Neuro vascular tendon exam: Present: no vascular compromise - Back Exam Back exam: Present: normal inspection - Neurological Exam Neurological exam: Present: alert, oriented X3 - Psychiatric Psychiatric exam: Present: normal affect, normal mood - Skin Skin exam: Present: warm, dry, intact, normal color. Absent: rash ED Course Vital Signs 10/18/21 13:27 Temperature 98.8 F Pulse Rate 94 H Respiratory 18 Rate Blood Pressure 150/104 O2 Sat by Pulse 98 Oximetry Critical care attestation.: If time is entered above; I have spent that time in minutes in the direct care of this critically ill patient, excluding procedure time. ED Disposition Clinical Impression: Gouty arthritis Disposition: HOME / SELF CARE / HOMELESS Is pt being admited?: No Does the pt Need Aspirin: No Condition: Stable Instructions: Low-Purine Eating Plan Additional Instructions: Take your medication as prescribed. Do not operate heavy machinery while taking tramadol. Is very important to increase your water intake while taking medication and having this flareup. Important to follow-up with your primary care provider. Prescriptions: Colchicine [Colcrys] 0.6 mg PO BID 3 Days #6 tab predniSONE [Deltasone] 60 mg PO QDAY #15 tab Indomethacin 50 mg PO Q8H #15 capsule traMADoL [Ultram 50 MG tab] 50 mg PO Q4HR PRN #15 tablet PRN Reason: Pain Referrals: MARICAMREN SALEH MD [Staff Physician] - 3-5 Days Forms: Work/School Release Form(ED) Time of Disposition: 15:00
== END 2021-10-18 15:45 | disposition home or self-care (01) ==
LOC: ED 13:18
DX: M10.9 Gout, unspecified (principal); Z79.899 Other long term (current) drug therapy
CPT/HCPCS: 99282